=== PATIENT | male | born 1995 | race Caucasian/White ===

== ENCOUNTER 2020-01-09 08:21 | Day surgery (SDC) | payer BC ==
[~2020-01-09 08:21] MED LIST: BUPIVACAINE HCL 0.25% /EPINEPHRINE INJ/PF 30 ML SDV ONE; CEFAZOLIN 2 GM/D5W RTU 2 GM/50 ML RTUPB IV ONE; CEFAZOLIN 2 GM/D5W RTU 2 GM/50 ML RTUPB IV PRN; DEXAMETHASONE SOD PHOSPHATE INJ 4 MG/1 ML VIAL ONE; FENTANYL CITRATE INJ/PF 100 MCG/2 ML AMPUL ONE; LACTATED RINGERS 1000 ML IV PRN; LIDOCAINE 0.5% INJ-PF (5 MG/ML) 50 ML SDV SUBCUT PRN; MIDAZOLAM 2 MG/2 ML INJ ONE; ONDANSETRON HCL INJ/PF 4 MG/2 ML SDV ONE; PROPOFOL INJ 200 MG/20 ML VIAL IV ONE
[2020-01-09] MEDS ORDERED: BUPIVACAINE HCL 0.25% /EPINEPHRINE INJ/PF 30 ML SDV ONE (09:32)
[2020-01-09] MEDS ORDERED: SILVER SULFADIAZINE 1% CREAM 25 GM ONE (09:49)
[2020-01-09] MEDS ORDERED: ONDANSETRON HCL INJ/PF 4 MG/2 ML SDV IV PRN (10:03)
[2020-01-09] MEDS ORDERED: DIPHENHYDRAMINE HCL 50 MG/ML VIAL IV PRN (10:03)
[2020-01-09] MEDS ORDERED: PROMETHAZINE HCL INJ 25 MG/1 ML VIAL IV PRN (10:03)
[2020-01-09] MEDS ORDERED: FENTANYL CITRATE INJ/PF 100 MCG/2 ML AMPUL IV PRN ×3 (10:03)
[2020-01-09] MEDS ORDERED: MORPHINE SULFATE 10 MG/ML INJ IV PRN (10:03)
[2020-01-09] MEDS ORDERED: MEPERIDINE HCL/PF INJ 25 MG/1 ML DISP.SYRIN IV PRN (10:03)
--- NOTE | 2020-01-09 10:42 | Operative Report ---
Nonrecallable Operative Report DATE OF SURGERY: 01/09/20 PREOPERATIVE DIAGNOSIS: Anal condylomata POSTOPERATIVE DIAGNOSIS: Same OPERATION: Excision and fulguration of anal condylomata SURGEON: MAUREEN PINON ANESTHESIA: GA TISSUE REMOVED OR ALTERED: Anal condylomata COMPLICATIONS: None ESTIMATED BLOOD LOSS: 10 cc INTRAOPERATIVE FINDINGS: Anal condylomata PROCEDURE: Patient was brought to the operating room and awake and alert in stable condition placed on the operating table supine position induced under general anesthesia and intubated. He was then placed in a high lithotomy position. The rectum was prepped and draped in usual sterile fashion. Patient had a large condylomata extending out of his rectum on the right side at approximately 9:00 with a broad base. The broad base extended to the anal mucosa this was incised and the mucosa with Bovie cautery and the anal condylomata was excised. There is a second tuft of condyloma at about the 11 o'clock position similarly broad- based to the rectal mucosa which was incised with Bovie cautery and removed. The anoscope was then placed into the rectum and he had a number of small condylomata extending up into the rectum approximately 2 cm which were fulgurated with Bovie cautery. The mucosa of the previously excised anal condyloma was then closed with a running 3-0 Vicryl suture. It was dressed with Silvadene cream and a sterile gauze. He was awakened in the operating room transferred recovery in stable condition no complications. LUCIA Ortiz was present for the entire procedure help with wound retraction wound closure and dissection.
--- NOTE | 2020-01-09 10:53 | Discharge Summary ---
Discharge Summary (SDC) - Discharge Final Diagnosis: Anal condylomata Date of Surgery: 01/09/20 Discharge Date: 01/09/20 Treatment or Instructions: sitzits bath in Epsom salts and warm soapy water 3 times daily for 3 to 4 days Prescriptions: Hydrocodone/Acetaminophen [[place] 10-325 mg Tablet] 1 tab PO Q6HP PRN #15 tablet PRN Reason: Referrals: SADAF DOW MD [Primary Care Provider] - Discharge Diet: As Tolerated Discharge Activity: Activity As Tolerated Report the Following to Your Physician Immediately: Shortness of Breath, Nausea, Unusual Bleeding - Follow-up in surgical clinic in 7 to 10 days
[2020-01-09 12:07] VITALS: BP 131/80
== END 2020-01-09 12:05 | disposition home or self-care (01) ==
LOC: OROUT 08:21
PROVIDERS: ATTEND Surgery
DX: A63.0 Anogenital (venereal) warts (principal); Z20.828 Contact with and (suspected) exposure to other viral communicable diseases
CPT/HCPCS: 46910; 46606; 00902; C1713; U0003; J2250; J3490; J1100; J3010; J2405; J2704; J0690; C9803; 87635; 902

== ENCOUNTER 2020-02-26 01:22 | Emergency (ER) | payer BC ==
--- NOTE | 2020-02-26 02:00 | ER Document Report ---
ED Dizziness/Weakness - General Chief Complaint: General Weakness Stated Complaint: FEVER,ALL OVER BODY PAIN,NAUSEA,SORE THROAT Time Seen by Provider: 02/26/20 02:00 Primary Care Provider: ASDAF DOW MD [Primary Care Provider] - Follow up as needed Notes: 02/26/20 01:47 - ED Nursing Note by FELICITAS PAUL Num: [id number] : 1995 Patient Age: [age] Y/O MALE, WHO WORKS IN [employer], PRESENTS C/O H/A, SORE THROAT, WEAKNESS, NAUSEA AND DIARRHEA. NAUSEATED IN TRIAGE. Initialized on 02/26/20 01:47 - END OF NOTE TRAVEL OUTSIDE OF THE [place] IN LAST 30 DAYS: No - HPI Patient complains to provider of: Weakness Onset/Duration: Sudden, Persistent Quality of pain: Achy Severity: Severe Pain Level: 4 Associated symptoms: Dizzy, Almost fainted, Lightheaded, Nausea Baseline gait: Walks w/o assistance - Related Data Allergies/Adverse Reactions: No Known Allergies Allergy (Verified 02/26/20 01:44) Past Medical History - General Information source: Patient - Social History Smoking Status: Never Smoker Cigarette use (# per day): No Chew tobacco use (# tins/day): No Smoking Education Provided: No Frequency of alcohol use: Occasional Drug Abuse: None Lives with: Family Family History: Reviewed & Not Pertinent Patient has suicidal ideation: No Patient has homicidal ideation: No - Past Medical History Cardiac Medical History: Denies: Hx Coronary Artery Disease, Hx Heart Attack, Hx Hypertension Pulmonary Medical History: Denies: Hx Asthma, Hx Bronchitis, Hx COPD, Hx Pneumonia Neurological Medical History: Denies: Hx Cerebrovascular Accident, Hx Seizures Musculoskeletal Medical History: Denies Hx Arthritis Review of Systems - Review of Systems Constitutional: See HPI, Chills, Diaphoresis, Fever, Malaise, Weakness, Recent illness EENT: See HPI, Nose congestion Cardiovascular: See HPI, Heart racing, Dyspnea, Dizziness, Lightheaded Respiratory: See HPI, Cough Gastrointestinal: See HPI, Nausea. denies: Blood streaked bowels, Poor fluid intake Genitourinary: No symptoms reported. denies: Frequency, Flank pain, Hematuria, Incontinence, Pain Male Genitourinary: No symptoms reported Musculoskeletal: No symptoms reported Skin: No symptoms reported Hematologic/Lymphatic: No symptoms reported Neurological/Psychological: See HPI, Weakness, Headaches. denies: Confusion, Dementia, Depression, Homicidal ideation, Paralysis, Seizure, Lost con sciousness, Speech impairment, Suicidal ideation, Tingling Physical Exam - Vital signs Vitals: Temp Pulse Resp BP Pulse Ox 100.6 F H 110 H 16 109/52 L 97 02/26/20 01:51 02/26/20 01:51 02/26/20 01:51 02/26/20 01:51 02/26/20 01:51 Interpretation: Tachycardic, Febrile - General General appearance: Appears well, Alert - HEENT Head: Normocephalic, Atraumatic Eyes: Normal Pupils: PERRL - Respiratory Respiratory status: No respiratory distress Chest status: Tender Breath sounds: Normal Chest palpation: Normal - Cardiovascular Rhythm: Tachycardia Heart sounds: Normal auscultation Murmur: No - Abdominal Inspection: Normal Distension: No distension Bowel sounds: Normal Tenderness: Nontender Organomegaly: No organomegaly - Rectal Prostate: Other - deferred - Genitourinary Scrotum: Other - deferred - Back Back: Normal, Nontender - Extremities General upper extremity: Normal inspection, Nontender, Normal color, Normal ROM, Normal temperature General lower extremity: Normal inspection, Nontender, Normal color, Normal ROM, Normal temperature, Normal weight bearing. No: Iain's sign - Neurological Neuro grossly intact: Yes Cognition: Normal Orientation: AAOx4 [place] Coma Scale Eye Opening: Spontaneous [place] Coma Scale Verbal: Oriented [place] Coma Scale Motor: Obeys Commands [place]rum Coma Scale Total: 15 Speech: Normal Motor strength normal: LUE, RUE, LLE, RLE Sensory: Normal - Psychological Associated symptoms: Normal affect, Normal mood - Skin Skin Temperature: Warm Skin Moisture: Dry Skin Color: Normal Course - Vital Signs Vital signs: Temp Pulse Resp BP Pulse Ox 98.4 F 110 H 18 120/72 97 02/26/20 03:18 02/26/20 03:18 02/26/20 03:18 02/26/20 03:18 02/26/20 03:18 - Laboratory Results Critical Laboratory Results Reviewed: Yes Attending or Supervising Physician who Reviewed Labs: ALEX FLORENCE JR - Radiology Results Critical Radiology Results Reviewed: Yes Attending or Supervising Physician who Reviewed Radiology: ALEX FLORENCE JR Critical Care Note - Critical Care Note Comments: flu strep neg Discharge - Discharge Clinical Impression: Viral syndrome, COVID-19 virus RNA test result unknown, Nausea alone Fever Qualifiers: Fever type: unspecified Qualified Code(s): R50.9 - Fever, unspecified Condition: Stable Disposition: HOME, SELF-CARE Instructions: Fever ([facility]), Viral Syndrome ([facility]) Additional Instructions: Follow-up with personal doctor this week return to ER for true emergencies take medicines as directed. Encourage fluids like chamomile tea. Take uppa-bti-ustz ter ibuprofen for fever. Apply cool compresses to head and neck to keep fever down. Prescriptions: Dexamethasone [Decadron 4 Mg Tablet] 4 mg PO DAILY #5 tablet Famotidine [Pepcid 20 mg Tablet] 20 mg PO BID #12 tablet Azithromycin [Zithromax 250 mg Tablet] 250 mg PO ASDIR PRN #6 tablet PRN Reason: Referrals: ASDAF DOW MD [Primary Care Provider] - Follow up as needed
[2020-02-26] MEDS ORDERED: ONDANSETRON 4 MG TAB.RAPDIS PO ONE (02:02)
[2020-02-26] MEDS ORDERED: IBUPROFEN 800 MG TABLET PO ONE (02:03)
[2020-02-26] MEDS ORDERED: AZITHROMYCIN 250 MG TABLET PO ONE (02:51)
[2020-02-26] MEDS ORDERED: DEXAMETHASONE 4 MG TABLET PO ONE (02:52)
[2020-02-26 03:01] LABS: A TYPE INFLUENZA AG NEGATIVE (NEGATIVE); B INFLUENZA AG NEGATIVE (NEGATIVE)
[2020-02-26 03:20] VITALS: BP 120/72
--- NOTE | 2020-02-26 03:38 | RADIOLOGY REPORT (SQ) ---
EXAM DESCRIPTION: XR CHEST 1 VIEW COMPLETED DATE/TME: 02/26/2020 02:26 CLINICAL HISTORY: 24 years, Male, cough fever COMPARISON: None. NUMBER OF VIEWS: 1 TECHNIQUE: Single portable frontal view of the chest was obtained at 2:34 AM. LIMITATIONS: None. FINDINGS: Heart size is within normal limits. There is mild stranding within the medial right middle lobe. Left lung is clear. There is no evidence of pleural effusion or pneumothorax. No definite bony abnormality is seen. IMPRESSION: Mild right middle lobe stranding, concerning for mild or early pneumonia. copyright 2010 [employer]- All Rights Reserved
== END 2020-02-26 03:18 | disposition home or self-care (01) ==
LOC: ER 01:22
DX: U07.1 COVID-19 (principal); J02.9 Acute pharyngitis, unspecified; B34.9 Viral infection, unspecified; R53.1 Weakness; R50.9 Fever, unspecified; R11.0 Nausea; R42 Dizziness and giddiness
CPT/HCPCS: 99284; 87070; 87880; 87804; 71045; J8540; S0119